=== PATIENT | male | born 1970 | race Caucasian/White ===

== ENCOUNTER 2021-06-18 16:32 | Emergency (ER) | payer MEDICARE, MEDICAID, SELFPAY ==
[2021-06-18 16:34] VITALS: BP 117/86; PULSE 59; RESP 20; TEMP 36.6; O2SAT 94
--- NOTE | 2021-06-18 17:02 | ED.GENADULT ---
HPI - General Adult General Chief complaint: Unspecified Stated complaint: rt leg pain Time Seen by Provider: 06/18/21 16:59 Source: patient Mode of arrival: ambulatory Limitations: no limitations History of Present Illness HPI narrative: Patient is a 50-year-old male brought in due to bizarre behavior and confusion. Patient was found laying on someone's driveway. Patient states that he has chronic pain everywhere. Review of Systems Review of Systems: ROS unobtainable: Yes unobtainable due to mental status PMFSH Comments Past medical history: Unknown Family history: Unknown Social history: Unknown Exam Const: General: cooperative, well developed, alert, awake, Physically active and poor hygiene Nutritional Appearance: average body habitus Orientation/consciousness: oriented to person, oriented to place, oriented to time and patient oriented x3 Limitations: other limitations HENMT: Head: normal to inspection, normocephalic and atraumatic Ears: hearing grossly normal bilaterally, TM normal on the right and TM normal on the left General nose exam: Normal external nose present, Normal nares present and No nasal discharge present Face and sinus: normal facial exam Mouth: Yes Normal oral and palatal mucosa present, Yes lip normal, Yes tongue normal and Yes oropharynx normal Throat: posterior oropharynx normal, tonsils normal and uvula midline Eyes: General: appearance normal, both eyes and all related structures Pupils: Equal, round and reactive pupils present EOM: EOMs intact bilaterally Neck: Neck: normal visual inspection, full ROM, no lymphadenopathy and no meningeal signs Chest: Chest palpation & inspection: normal inspection of the chest Resp: Effort & Inspection: normal respiratory effort, able to speak in complete sentences, no respiratory distress and not tachypneic Auscultation: clear to auscultation bilaterally, no crackles, no rales, no rhonchi and no wheezes Cardio: Rate: regular rate Rhythm: regular rhythm GI: Inspection: normal to inspection GI Palp: No abdominal tenderness, Yes Soft to palpation, No Tenderness to palpation present (GI), No Guarding due to palpation present (GI), No Rigid due to palpation and No Rebound tenderness present Auscultation: normal bowel sounds : General: Yes no CVA tenderness Back/Spine/Pelvis: Back: no CVA tenderness Skin: General skin exam: normal color, no rashes or lesions noted, elasticity normal and turgor normal Neuro: General: oriented to person, oriented to place, oriented to time, patient oriented x3, tone normal, moves all extremities, Normal light touch and pain sensation, no meningeal signs, no focal motor deficits, CN's II-XI intact bilaterally and No confusion Cranial nerves: Yes Equal, round and reactive pupils present Speech: No Abnormal speech present Sensory Exam: No Sensory deficit (Neuro) Extrem: General: normal to inspection, full ROM and capillary refill normal Psych: Speech and movement: Normal speech and movement present Course Vital Signs Vital signs: Vital Signs Temperature 36.6 C 06/18/21 16:34 Pulse Rate 59 L 06/18/21 16:34 Respiratory Rate 20 06/18/21 16:34 Blood Pressure 117/86 06/18/21 16:34 Pulse Oximetry 94 06/18/21 16:34 Temperature 37.1 C 06/18/21 17:24 Pulse Rate 80 06/18/21 17:24 Respiratory Rate 14 06/18/21 17:24 Blood Pressure 117/90 06/18/21 17:24 Pulse Oximetry 100 06/18/21 17:24 Medical Decision Making MDM Narrative Medical decision making narrative: Brother who is power of water supervisor's arrived and now at bedside. His brother states that this is his baseline and the reason why he is confused about being at [facility] is because his brother just moved him here. Brother states that the patient has a history of stroke and seizure in the past and that his mental health has been slowly deteriorating. Brother would like to take the patient back home and he does not want any lab work-up. Vital
--- NOTE | 2021-06-18 17:02 | PC.NURSE ---
Pt sister Wendy Moran called, she was told by Kin AGUIRRE he was brought to this facility. She will send her Ondina to sit with the patient. Wendy- [phone], Ondina [phone].
--- NOTE | 2021-06-18 17:05 | PC.NURSE ---
pt continues to get out of bed and walk down the hallway despite asking him to stay on his stretcher. sitter placed with pt for safety purposes until family member can get here.
[2021-06-18 17:24] VITALS: BP 117/90; PULSE 80; RESP 14; TEMP 37.1; O2SAT 100
[2021-06-18 18:10] VITALS: BP 121/64; PULSE 62; RESP 14; O2SAT 100
== END 2021-06-18 18:11 | disposition home or self-care (01) ==
PROVIDERS: Emergency Provider Emergency Medicine
DX: R41.82 Altered mental status, unspecified (principal); F91.9 Conduct disorder, unspecified; Z86.73 Personal history of transient ischemic attack (TIA), and cerebral infarction without residual deficits
CPT/HCPCS: 99281

== ENCOUNTER 2022-04-19 17:16 | Emergency (ER) | payer OTHER, SELFPAY ==
--- NOTE | ~2022-04-19 | XR_ITS ---
EXAMINATION: XR foot RT min 3V DATE: 04/19/2022 17:59 INDICATION: Lateral right foot pain post fall. TECHNIQUE: Dorsoplantar, two oblique and lateral views of the right foot were obtained. COMPARISON: None. FINDINGS: There is plantar flexion of the foot and and ankle which is likely positional. No evident traumatic m alalignment. No fractures. Joint spaces are normal. Soft tissues are unremarkable. The right ankle jameson int effusion. IMPRESSION: 1. Likely positional plantar flexion of the foot and ankle. No other osseous abnormality. Reviewed, dictated and finalized at location A. IMPRESSION: 1. Likely positional plantar flexion of the foot and ankle. No other osseous ab normality.
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
[2022-04-19 17:15] VITALS: BP 142/86; PULSE 94; RESP 18; TEMP 36.6; O2SAT 96
--- NOTE | 2022-04-19 17:40 | ECG_ITS ---
Measurements Intervals [place] Rate: 80 P: 53 [place]: 148 QRS: 64 QRSD: 79 T: 50 QT: 367 QTc: 423 Interpretive Statements SINUS RHYTHM POSSIBLE LEFT ATRIAL ENLARGEMENT [-0.1mV P WAVE IN V1/V2] BORDERLINE ECG NO PREVIOUS ECG AVAILABLE FOR COMPARISON Electronically Signed On 04-20-2022 12:42:03 CDT by Edilberto Hough M.D.
--- NOTE | 2022-04-19 17:47 | ED.LOWEXIN ---
HPI - Extremity Injury (Lower) General Chief Complaint: Extremity Injury, Lower <PATTI Puente Last Filed: 04/19/22 20:37> Stated Complaint: right foot pain <PATTI Puente Last Filed: 04/19/22 20:37> Source: patient and EMS <PATTI Puente Last Filed: 04/19/22 20:37> Mode of arrival: EMS <PATTI Puente Last Filed: 04/19/22 20:37> Limitations: clinical condition <PATTI Puente Last Filed: 04/19/22 20:37> History of Present Illness HPI Narrative: Patient is a 51-year-old male who presents the ED via EMS with report of right foot pain. Per EMS report, patient tripped and fell and was found on the sidewalk. Complaining of right foot pain. Patient has history of recent CVA with right-sided deficits and residual dysarthria. He wears a splint on his right foot and right hand is contractured. Patient reports he was slight dizzy prior to the fall occurring. Denies any dizziness currently. He does complain of right foot pain right now. He does not think he hit his head or lost consciousness. <PATTI Puente Last Filed: 04/19/22 20:37> Related Data Allergies/Adverse Reactions: Allergies Allergy/AdvReac Type Severity Reaction Status Date / Time No Known Allergies Allergy Verified 04/19/22 17:22 <PATTI Puente Last Filed: 04/19/22 20:37> Review of Systems Review of Systems: CONSTITUTIONAL: Denies fever. MUSCULOSKELETAL: Reports right foot pain. NEUROLOGIC: Reports dizziness, possible head injury/LOC. Reports chronic weakness of right upper extremity, right lower extremity. Denies headache, numbness. <PATTI Puente Last Filed: 04/19/22 20:37> ROS unobtainable: Yes unobtainable due to medical condition <PATTI Puente Last Filed: 04/19/22 20:37> PMFSH Past Medical History Medical History: Medical History (Updated 04/19/22 @ 20:31 by Kindra Boyer PA-C) History of CVA (cerebrovascular accident) <Kindra Boyer PA-C - Last Filed: 04/19/22 20:37> Surgical History Surgical History: Surgical History (Updated 04/19/22 @ 18:24 by Kindra Boyer PA-C) History of craniotomy <Kindra Boyer PA-C - Last Filed: 04/19/22 20:37> Social History Social History: Social History (Updated 04/19/22 @ 18:24 by Kindra Boyer PA-C) Smoking status: Current every day smoker <Kindra Boyer PA-C - Last Filed: 04/19/22 20:37> Exam Narrative: GENERAL: Mildly disheveled appearing, thin, non-toxic, in no acute distress. HEAD: Normocephalic, atraumatic. EYES: PERRL/EOMI, conjunctivae clear bilaterally. NECK: Supple. No adenopathy, no masses. No tenderness. Full ROM. RESPIRATORY: Airway patent, respirations nonlabored. Clear to auscultation bilaterally, no rales, rhonchi, wheezing. CARDIOVASCULAR: Regular rate and rhythm without murmurs, rubs, or gallops. Peripheral pulses 2+ and equal bilaterally. MUSCULOSKELETAL: Limited ROM, decreased strength of RUE/RLE, consistent with previous CVA. Contracture of R hand, contracture/foot drop/exaggerated plantar flexion of R foot, also consistent with previous CVA. Diffuse TTP of R foot. SKIN: Warm, dry, normal color. No rashes. NEURO: A&O X3. Occasional dysarthria/trouble finding words. Cranial nerves II-XII grossly intact. No ataxic movements. PSYCHIATRIC: Appropriate mood and affect. Normal interaction. <Kindra Boyer PA-C - Last Filed: 04/19/22 20:37> Course BEE FARMER/PA Physician Supervision For this patient encounter, I reviewed the BEE FARMER or PA documentation, treatment plan, and medical decision making <Arnaldo Pina MD - Last Filed: 04/19/22 21:21> Vital Signs Vital signs: Vital Signs Temperature 97.8 F 04/19/22 17:15 Pulse Rate 94 04/19/22 17:15 Respiratory Rate 18 04/19/22 17:15 Blood Pressure 142/86 H 04/19/22 17:15 Pulse Oximetry 9
[2022-04-19 18:27] LABS: Basophils Absolute Auto 0.1 K/mm3 (0.0-0.1); Basophils Percent Auto 0.6 % (0.2-1.2); Eosinophils Absolute Auto 0.2 K/mm3 (0-0.3); Hematocrit 44.2 % (42.0-52.0); Hemoglobin 14.8 g/dL (14.0-18.0); Immature Granulocyte Absolute 0.03 K/mm3 (0.00-0.031); Immature Granulocyte Percent A 0.3 % (0-0.5); Lymphocytes Absolute Auto 3.28 K/mm3 (0.9-3.2); Lymphocytes Percent Auto 31.4 % (18.3-44.2); Mean Corpuscular HGB Conc 33.5 g/dl (32-36); Mean Corpuscular Hemoglobin 30.3 pg (26-34); Mean Corpuscular Volume 90.4 fl (80-100); Monocytes Absolute Auto 0.8 K/mm3 (0.1-0.6); Monocytes Percent Auto 7.3 % (2.6-8.5); Neutrophils Absolute Auto 6.1 K/mm3 (1.3-6.7); Neutrophils Percent Auto 58.4 % (45.5-73.1); Platelet Count Result 339 k/mm3 (150-375); Red Blood Count 4.89 M/mm3 (4.6-6.20); Red Cell Distribution Width 13.7 % (11.5-14.5); White Blood Count 10.4 K/mm3 (4.5-10.0)
[2022-04-19] MEDS: KETOROLAC 30 MG/ML VIAL (*BKC) IM (18:39)
--- NOTE | 2022-04-19 19:16 | PC.NURSE ---
Report received from SUNDAY Camacho. Pt needs green top redrawn per lab request. Pt up out of bed requesting something further for pain. Provider made aware.
[2022-04-19 19:45] LABS: Alanine Aminotransferase 31 U/L (6-50); Albumin Level 4.9 g/dL (3.5-5.1); Alkaline Phosphatase 121 U/L (38-126); Anion Gap 11 mmol/L (8-16); Aspartate Amino Transferase 41 U/L (17-59); Bilirubin,Total 0.9 mg/dL (0.2-1.3); Blood Urea Nitrogen 19 mg/dL (9-20); Calcium 9.6 mg/dL (8.4-10.2); Carbon Dioxide 27 mmol/L (22-30); Chloride 105 mmol/L (98-107); Estimated CRCL calculation 68 ml/min; Estimated Glomerular Filt Rate > 60; Glucose 101 mg/dL (65-110); Potassium 4.7 mmol/L (3.4-5.0); Sodium 143 mmol/L (137-145)
--- NOTE | 2022-04-19 20:43 | PC.NURSE ---
Ondina contacted [phone] per pt request for ride home. States will be here miladis.
== END 2022-04-19 20:50 | disposition home or self-care (01) ==
PROVIDERS: Physician Assistant; Emergency Provider Emergency Medicine
DX: S99.921A Unspecified injury of right foot, initial encounter (principal); I69.922 Dysarthria following unspecified cerebrovascular disease; F17.200 Nicotine dependence, unspecified, uncomplicated; R94.31 Abnormal electrocardiogram [ECG] [EKG]; W01.0XXA Fall on same level from slipping, tripping and stumbling without subsequent striking against object, initial encounter
CPT/HCPCS: 36415; 70450; 73630; 80053; 85025; 93005; 96372; 99284; J1885

== ENCOUNTER 2022-07-04 15:08 | Emergency (ER) | payer OTHER, SELFPAY ==
--- NOTE | ~2022-07-04 | XR_ITS ---
EXAMINATION: XR chest 1V portable INDICATION: Confusion, altered mental status TECHNIQUE: Portable AP chest at 1634 hours COMPARISON: None available FINDINGS: The lungs are free of acute opacities. No pleural effusion or pneumothorax. The heart size is normal. Calcified left hilar lymph nodes are consistent with old granulomatous disease. Surgical c hanges are noted in the left upper quadrant. IMPRESSION: 1. No acute cardiopulmonary abnormality. Reviewed, dictated and finalized at location B. [employer]
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
--- NOTE | 2022-07-04 15:22 | ECG_ITS ---
Measurements Intervals [place] Rate: 58 P: 63 [place]: 149 QRS: 70 QRSD: 85 T: 60 QT: 374 QTc: 368 Interpretive Statements SINUS BRADYCARDIA RSR' IN V1 OR V2, PROBABLY NORMAL VARIANT BORDERLINE ECG COMPARED TO ECG 04/19/2022 18:26:30 SINUS BRADYCARDIA NOW PRESENT Electronically Signed On 07-04-2022 20:05:47 [facility] by Yovanny Mcpherson D.O.
[2022-07-04 15:54] VITALS: BP 136/75; PULSE 67; RESP 14; TEMP 36.7; O2SAT 100
[2022-07-04 16:06] LABS: Basophils Absolute Auto 0.1 K/mm3 (0.0-0.1); Basophils Percent Auto 0.8 % (0.2-1.2); Eosinophils Absolute Auto 0.2 K/mm3 (0-0.3); Eosinophils Percent Auto 2.4 % (0-4.4); Hematocrit 44.2 % (42.0-52.0); Hemoglobin 14.6 g/dL (14.0-18.0); Immature Granulocyte Absolute 0.03 K/mm3 (0.00-0.031); Immature Granulocyte Percent A 0.4 % (0-0.5); Lymphocytes Absolute Auto 2.11 K/mm3 (0.9-3.2); Lymphocytes Percent Auto 28.2 % (18.3-44.2); Mean Corpuscular Hemoglobin 30.6 pg (26-34); Mean Corpuscular Volume 92.7 fl (80-100); Mean Platelet Volume 10.1 fl (7.4-10.4); Monocytes Absolute Auto 0.5 K/mm3 (0.1-0.6); Monocytes Percent Auto 6.3 % (2.6-8.5); Neutrophils Absolute Auto 4.6 K/mm3 (1.3-6.7); Neutrophils Percent Auto 61.9 % (45.5-73.1); Platelet Count Result 308 k/mm3 (150-375); Red Blood Count 4.77 M/mm3 (4.6-6.20); Red Cell Distribution Width 13.4 % (11.5-14.5); White Blood Count 7.5 K/mm3 (4.5-10.0)
[2022-07-04 16:08] VITALS: BP 98/71; PULSE 67; RESP 12; O2SAT 100
[2022-07-04 16:19] LABS: Alanine Aminotransferase 26 U/L (6-50); Albumin Level 4.3 g/dL (3.5-5.1); Alkaline Phosphatase 89 U/L (38-126); Anion Gap 13 mmol/L (8-16); Aspartate Amino Transferase 30 U/L (17-59); Bilirubin,Total 0.5 mg/dL (0.2-1.3); Blood Urea Nitrogen 22 mg/dL (9-20); Calcium 9.1 mg/dL (8.4-10.2); Carbon Dioxide 30 mmol/L (22-30); Chloride 104 mmol/L (98-107); Estimated CRCL calculation 81 ml/min; Estimated Glomerular Filt Rate > 60; Glucose 102 mg/dL (65-110); Potassium 3.9 mmol/L (3.4-5.0); Sodium 147 mmol/L (137-145)
[2022-07-04 16:59] LABS: Ethanol < 10 mg/dL (<10)
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
[2022-07-04 18:16] LABS: Appearance Urine Slightly Cloudy (Clear); Bilirubin Urine Negative (Negative); Blood Urine Negative (Negative); Color Urine Yellow (Yellow); Glucose Urine UA Negative (Negative); Ketones Urine Negative (Negative); Leukocyte Esterase Ur Negative LEU/UL (Negative); Nitrate Urine Negative (Negative); Protein Urine Negative (Negative); Urobilinogen Urine 0.2 mg/dL (<2.0)
[2022-07-04 18:19] LABS: Bacteria Urine Trace /hpf; Mucus Urine Rare /lpf; RBC Urine 0-2 /hpf (0-2); WBC Urine 0-3 /hpf
[2022-07-04 18:20] LABS: Add Urine Microscopic? YES
[2022-07-04 19:27] LABS: Barbiturate Screen Urine Negative (Negative); Benzodiazepines Screen Urine Negative (Negative)
[2022-07-04 19:28] LABS: Amphetamine Screen Urine Negative (Negative); Cannabinoid Screen Urine Positive (Negative); Cocaine Screen Urine Negative (Negative); Methadone Screen Urine Negative (Negative); Opiate Screen Urine Negative (Negative); Phencyclidine Screen Urine Negative (Negative)
== END 2022-07-04 19:08 | disposition home or self-care (01) ==
PROVIDERS: Emergency Medicine; Physician Assistant; Emergency Provider Emergency Medicine
DX: R41.82 Altered mental status, unspecified (principal); I69.951 Hemiplegia and hemiparesis following unspecified cerebrovascular disease affecting right dominant side; S09.90XS Unspecified injury of head, sequela; F17.200 Nicotine dependence, unspecified, uncomplicated; R00.1 Bradycardia, unspecified; R94.31 Abnormal electrocardiogram [ECG] [EKG]; W34.00XS Accidental discharge from unspecified firearms or gun, sequela
CPT/HCPCS: 36415; 70450; 71045; 80053; 80307; 81001; 85025; 85610; 85730; 93005; 99284

== ENCOUNTER 2023-11-07 19:07 | Emergency (ER) | payer MEDICARE, MEDICAID, SELFPAY ==
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
[2023-11-07 19:06] VITALS: PULSE 108; RESP 16; TEMP 36.6; O2SAT 100
[2023-11-07] MEDS: MIDAZOLAM HCL (*CRX) 2 MG/2 ML VIAL 10 MG IM (19:42)
[2023-11-07] MEDS: HALOPERIDOL LACTATE 5 MG/ML VIAL IM (19:42)
[2023-11-07] MEDS: diphenhydrAMINE HCl INJ 50 MG/ML VIAL 25 MG IM (19:42)
--- NOTE | 2023-11-07 19:43 | PC.NURSE ---
Consulted EDP about dosage for Versed; VORB for 4 mg Versed IM, 25 mg of Benadryl IM, and 5 mg of Haldol IM. Patient is yelling and uncooperative with staff upon arrival. Medications adminsitered in left gluteal and left thigh. Brother at bedside.
[2023-11-07 19:50] VITALS: O2SAT 100
[2023-11-07 20:22] VITALS: BP 110/78; PULSE 92; RESP 15; O2SAT 95
[2023-11-07 20:27] LABS: Basophils Absolute Auto 0.1 K/mm3 (0.0-0.1); Basophils Percent Auto 0.7 % (0.2-1.2); Eosinophils Absolute Auto 0.2 K/mm3 (0-0.3); Eosinophils Percent Auto 2.5 % (0-4.4); Hematocrit 40.7 % (42.0-52.0); Hemoglobin 14.3 g/dL (14.0-18.0); Immature Granulocyte Absolute 0.02 K/mm3 (0.00-0.031); Immature Granulocyte Percent A 0.2 % (0-0.5); Lymphocytes Absolute Auto 2.99 K/mm3 (0.9-3.2); Lymphocytes Percent Auto 36.8 % (18.3-44.2); Mean Corpuscular HGB Conc 35.1 g/dl (32-36); Mean Corpuscular Volume 88.3 fl (80-100); Mean Platelet Volume 10.5 fl (7.4-10.4); Monocytes Absolute Auto 0.6 K/mm3 (0.1-0.6); Monocytes Percent Auto 7.8 % (2.6-8.5); Neutrophils Absolute Auto 4.2 K/mm3 (1.3-6.7); Platelet Count Result 279 k/mm3 (150-375); Red Blood Count 4.61 M/mm3 (4.6-6.20); Red Cell Distribution Width 12.8 % (11.5-14.5); White Blood Count 8.1 K/mm3 (4.5-10.0)
[2023-11-07 20:38] LABS: Ethanol < 10 mg/dL (<10); INR 1.1; Partial Thromboplastin Time 26.4 Seconds (22.3-36.8); Prothrombin Time 14.6 Seconds (11.1-14.7)
[2023-11-07 20:41] LABS: Alanine Aminotransferase 35 U/L (6-50); Albumin Level 4.1 g/dL (3.5-5.1); Alkaline Phosphatase 81 U/L (38-126); Anion Gap 7 mmol/L (8-16); Aspartate Amino Transferase 43 U/L (17-59); Bilirubin,Total 1.4 mg/dL (0.2-1.3); Blood Urea Nitrogen 15 mg/dL (9-20); Calcium 9.2 mg/dL (8.4-10.2); Carbon Dioxide 25 mmol/L (22-30); Chloride 107 mmol/L (98-107); Creatine Kinase 287 U/L (55-170); Estimated CRCL calculation 91 ml/min; Estimated Glomerular Filt Rate > 60; Glucose 100 mg/dL (65-110); Sodium 139 mmol/L (137-145)
[2023-11-07 21:29] LABS: Appearance Urine Clear (Clear); Bacteria Urine None Seen /hpf; Bilirubin Urine Negative (Negative); Blood Urine Negative (Negative); Color Urine Yellow (Yellow); Glucose Urine UA Negative (Negative); Ketones Urine Trace mg/dL (Negative); Leukocyte Esterase Ur Negative LEU/UL (Negative); Need Manual Microscopic Reviewed; Nitrate Urine Negative (Negative); Non Pathogenic Casts 0-2; Protein Urine 1+ mg/dL (Negative); RBC Urine 0-2 /hpf (0-2); Specific Grav Ur 1.026 (1.001-1.035); Squamous Epithelial Cell Urine None Seen /hpf (Few); WBC Urine 0-5 /hpf (0-3)
[2023-11-07 21:30] LABS: Add Urine Microscopic? YES; Spermatozoa Urine PRESENT
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
[2023-11-07 22:36] VITALS: BP 106/76; PULSE 68; RESP 15; O2SAT 100
[2023-11-07 23:37] VITALS: BP 102/64; PULSE 69; RESP 15; O2SAT 99
== END 2023-11-07 23:38 | disposition home or self-care (01) ==
PROVIDERS: Emergency Provider Student in an Organized Health Care Education/Training Program
DX: G40.909 Epilepsy, unspecified, not intractable, without status epilepticus (principal); F17.200 Nicotine dependence, unspecified, uncomplicated; Z86.73 Personal history of transient ischemic attack (TIA), and cerebral infarction without residual deficits; Z98.890 Other specified postprocedural states; Z87.820 Personal history of traumatic brain injury; Z91.148 Patient's other noncompliance with medication regimen for other reason
CPT/HCPCS: 36415; 70450; 80053; 80307; 82550; 85025; 85610; 85730; 96372; 99284; J1200; J1630; J2250

== ENCOUNTER 2023-11-11 14:02 | Emergency (ER) | payer MEDICARE, MEDICAID, SELFPAY ==
--- NOTE | ~2023-11-11 | XR_ITS ---
XR chest 1V portable DATE: 11/11/2023 16:08 INDICATION: Agitation TECHNIQUE: Portable AP chest on 11/11/2023 at 1604 hours COMPARISON: 07/14/2022 portable AP chest FINDINGS: Normal heart size. Calcified left hilar nodes consistent with old pulmonary granulomatous d isease. No pulmonary infiltrate or consolidation, pleural effusion or pulmonary vascular congestion or pneumo thorax is evident. Surgical clips overlie the left upper quadrant with suggestion of splenectomy. IMPRESSION: No active cardiopulmonary disease Postoperative change of left upper quadrant, also present on 07/14/2022 Reviewed, dictated and finalized at location B.
[2023-11-11 14:22] VITALS: BP 138/80; PULSE 77; RESP 20; TEMP 36.3; O2SAT 100; O2SAT 97
[2023-11-11] MEDS: LORazepam (*CRX) 1 MG TABLET PO (14:39)
[2023-11-11] MEDS: diphenhydrAMINE HCl INJ 50 MG/ML VIAL (15:11)
[2023-11-11] MEDS: HALOPERIDOL LACTATE 5 MG/ML VIAL (15:11)
--- NOTE | 2023-11-11 15:13 | PC.NURSE ---
Pt screaming in room, cursing at staff, attempting to get out of bed. Another RN and MD in room to medication patient safely. Bed low, rails up, bed alarm under patient.
--- NOTE | 2023-11-11 17:25 | PC.NURSE ---
x2 attempt at drawing blood from patient and he stated it was ok for tech to draw. pt began screaming and cursing staff stating i dont fuing care . Tech left room for safety. made aware.
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
--- NOTE | 2023-11-11 19:16 | PC.NURSE ---
Attempted to call brother to pick out hand and no answer.
[2023-11-11 20:00] VITALS: BP 132/78; PULSE 74; RESP 18; TEMP 36.6; O2SAT 98
== END 2023-11-11 20:00 | disposition home or self-care (01) ==
PROVIDERS: Emergency Provider Emergency Medicine
DX: R45.1 Restlessness and agitation (principal); F17.200 Nicotine dependence, unspecified, uncomplicated; Z86.73 Personal history of transient ischemic attack (TIA), and cerebral infarction without residual deficits
CPT/HCPCS: 71045; 96372; 99283; A9270; J1200; J1630; J2060

== ENCOUNTER 2024-01-02 12:37 | Emergency (ER) | payer MEDICARE, MEDICAID, SELFPAY ==
[2024-01-02 12:57] VITALS: BP 123/78; PULSE 97; RESP 15; TEMP 36.5; O2SAT 99
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
--- NOTE | 2024-01-02 16:43 | PC.NURSE ---
called pts brother for a ride home. pts brother states the pts father will be here in 10-15 mins to pick pt up.
== END 2024-01-02 17:05 | disposition home or self-care (01) ==
PROVIDERS: Emergency Provider Emergency Medicine
DX: Z00.8 Encounter for other general examination (principal); F17.200 Nicotine dependence, unspecified, uncomplicated; Z86.73 Personal history of transient ischemic attack (TIA), and cerebral infarction without residual deficits; Z87.820 Personal history of traumatic brain injury
CPT/HCPCS: 99281

== ENCOUNTER 2024-07-08 10:49 | Inpatient (IN) | payer MEDICARE, MEDICAID, SELFPAY ==
--- NOTE | ~2024-07-08 | CT_ITS ---
EXAMINATION: CT brain wo con DATE: 07/10/2024 11:12 INDICATION: Expressive aphasia. TECHNIQUE: Computed tomography (CT) of the head was performed without intravenous contrast. The mA wa s adjusted according to patient size. Iterative reconstruction technique was employed. The dose-lengt h product was 1359.51 mGy-cm. COMPARISON: Head CT 11/07/2023 FINDINGS: Motion artifact is noted. There is chronic encephalomalacia in the right parietal occipital region. There is extensive chronic encephalomalacia involving left cerebral hemisphere in the expect ed distribution of the internal carotid artery. There is no intracranial hemorrhage, acute infarction , or abnormal intracranial mass lesion. There is ex vacuo dilatation of the lateral ventricles. There are changes of left-sided craniotomy. There is mucosal thickening in the paranasal sinuses. The mast oid air cells are normal. There is cerumen in left external auditory canal. Intracranial shrapnel is noted. IMPRESSION: 1. Chronic extensive encephalomalacia in the brain, left worse than right. Reviewed, dictated and finalized at location A. UTER SYSTEMS INTEGRATOR
--- NOTE | ~2024-07-08 | XR_ITS ---
EXAMINATION: XR chest 1V portable DATE: 07/11/2024 10:09 INDICATION: Hypotension. TECHNIQUE: A single frontal view of the chest was obtained. COMPARISON: Chest single view 11/11/2023 FINDINGS: There is no pneumonia, pleural effusion, or pneumothorax. The heart size is normal. Calcifi ed left hilar lymph nodes are consistent with old granulomatous disease. There are surgical clips in left abdomen. IMPRESSION: 1. No acute cardiopulmonary disease. Reviewed, dictated and finalized at location A. OR REPRESENTATIVES
[2024-07-08 10:44] VITALS: BP 111/81; PULSE 60; RESP 20; TEMP 36.4; O2SAT 99
--- NOTE | 2024-07-08 11:04 | PC.NURSE ---
Attempted to contact pt's brother
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
[2024-07-08 17:27] VITALS: BP 112/73; PULSE 72; RESP 20; O2SAT 100
--- NOTE | 2024-07-08 17:59 | PCCCNOTE ---
1200-called to the ED for possible placement of pt. Pt lives alone at his residence at this time, but is becoming more confused and unable to care for himself. He has a history of a TBI and CVA. Pts brother is Ondina Moran, , he is the pts POA. Pt is A&O times one, he also has a difficult time with walking due to his right foot is contracted. I faxed a referral to [facility], [facility], and [facility]. Mai from [facility] and Zahira from [facility] came to evaluate pt. Both declined to take pt due to pt agitation and screaming profanities. I left a message with Zahira with [facility] to inquire about placement in the [place] facility, if they have an ADAPT program. Mai from [facility] was looking into their [facility] facility. Pt brother would prefer him to be closer to the [place] area, but if he has to go farther away to receive the ADAPT facilities, he is open to that as well.
[2024-07-08 18:40] LABS: Alanine Aminotransferase 33 U/L (6-50); Albumin Level 4.3 g/dL (3.5-5.1); Alkaline Phosphatase 90 U/L (38-126); Anion Gap 9 mmol/L (4-12); Aspartate Amino Transferase 57 U/L (17-59); Blood Urea Nitrogen 14 mg/dL (9-20); Calcium 9.2 mg/dL (8.4-10.2); Carbon Dioxide 27 mmol/L (22-30); Chloride 102 mmol/L (98-107); Estimated CRCL calculation 89 ml/min; Estimated Glomerular Filt Rate > 60; Glucose 115 mg/dL (65-110); Potassium 3.6 mmol/L (3.4-5.0); Sodium 138 mmol/L (137-145)
[2024-07-08 19:10] LABS: Basophils Absolute Auto 0.1 K/mm3 (0.0-0.1); Basophils Percent Auto 0.6 % (0.2-1.2); Eosinophils Absolute Auto 0.4 K/mm3 (0-0.3); Eosinophils Percent Auto 4.5 % (0-4.4); Hematocrit 41.6 % (42.0-52.0); Hemoglobin 14.7 g/dL (14.0-18.0); Immature Granulocyte Absolute 0.03 K/mm3 (0.00-0.031); Immature Granulocyte Percent A 0.3 % (0-0.5); Lymphocytes Absolute Auto 3.01 K/mm3 (0.9-3.2); Lymphocytes Percent Auto 33.6 % (18.3-44.2); Mean Corpuscular HGB Conc 35.3 g/dl (32-36); Mean Corpuscular Hemoglobin 31.5 pg (26-34); Mean Corpuscular Volume 89.3 fl (80-100); Mean Platelet Volume 10.2 fl (7.4-10.4); Monocytes Absolute Auto 0.9 K/mm3 (0.1-0.6); Monocytes Percent Auto 9.5 % (2.6-8.5); Neutrophils Absolute Auto 4.6 K/mm3 (1.3-6.7); Neutrophils Percent Auto 51.5 % (45.5-73.1); Platelet Count Result 294 k/mm3 (150-375); Red Blood Count 4.66 M/mm3 (4.6-6.20); Red Cell Distribution Width 12.7 % (11.5-14.5)
--- NOTE | 2024-07-08 19:11 | PC.NURSE ---
EDP Dr. Yovani hu with patient not having an IV with admission.
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
[2024-07-08 19:50] VITALS: BMI 21.2
[2024-07-08 20:07] VITALS: BP 110/85; PULSE 75; RESP 18; TEMP 36.3; O2SAT 100
[2024-07-08] MEDS: OLANZapine 5 MG TABLET PO (23:18)
[2024-07-09 04:09] VITALS: BP 99/58; PULSE 133; RESP 24
[2024-07-09] MEDS: LIDOCAINE HCL 2% GEL UROJET 10 ML PKG MUCOUS MEM (04:20)
--- NOTE | 2024-07-09 04:23 | ECG_ITS ---
Test Date: 2024-07-09 04:49:43 Measurements Intervals [place] Rate: 60 P: 49 OR: 161 QRS: 45 QRSD: 78 T: 57 QT: 391 QTc: 391 Interpretive Statements SINUS RHYTHM LOW QRS VOLTAGE IN PRECORDIAL LEADS POSSIBLE RIGHT VENTRICULAR CONDUCTION DELAY BASELINE ARTIFACT- I, II, III, AVR, AVL, AVF, V1-V6 BORDERLINE ECG No previous ECG available for comparison Electronically Signed On 07-09-2024 05:37:33 CONTRACT CLERK by Yovanny Mcpherson D.O.
[2024-07-09 04:24] LABS: Glucose Point of Care 98 mg/dl (65-105)
--- NOTE | 2024-07-09 04:32 | PM.CCN ---
Critical Care Event Note Summary Code activated: No Narrative: 07/09/2024 approximately 04:00 Patient was restless and impulsive. He cap calling out in yelling. Earlier in the evening he had received a dose of Zyprexa with relatively good results in seemed to be resting. The patient did become intermittently restless and would be impulsive and was occasionally still yelling out so in order was given for Seroquel nightly to see if this would not help with some of the patient's symptoms. Patient is reportedly not on antipsychotics at home. We do not have [place] records from the [place]. Then approximately IV a.m. patient suddenly sat up in bed and when her patient childcare worker came to the patient's bedside the patient slumped to the side with his head at the foot of the bed but was able to flop himself to the other side of the bed. When they tried to repositioning him in set him up the patient seemed to go limp and fall backwards. I was nearby and went to evaluate the patient patient's blood pressures were borderline low 95/61. Patient was not tachycardic or tachypneic. He seemed less responsive for about a minute. But on questioning patient could tell me his name and was able to independently localized my hand and a voice displeasure with staff touching him. At the time of my evaluation the patient seems significantly uncomfortable with palpation of his abdomen and I suspected a distended bladder. Bladder scan was performed which demonstrated greater than 750 mL of urine. A straight catheterization was performed and patient had greater than 1 L of urine output. Unfortunately I was not aware that the patient had not had a UA obtained in the ER and the urine specimen was discarded. Patient's urine was clear but quite dark. After catheterization the patient seemed much more comfortable and was able to tell nursing staff that he was cold and seemed back to prior baseline if not slightly improved. I am suspicious that some of the patient's recent behavior changes may been due urinary retention. Patient may have some component of BPH. Will start the patient on Flomax and will bladder scan the patient and perform intermittent catheterization. Patient will not tolerate presence of a Multani catheter and was already trying to pull at the straight catheterization well nursing was performing the procedure. I have provided order for UA with the patient's next void. Patient does have some dry mucous membranes and has had a few drinks of water but is not actively seeking oral intake. Patient will likely need assistance and encouragement to continue with oral intake. It may be beneficial to see if the [facility] If he is he may benefit from transfer to a [place] prison facility given the complexity of his history of behavior issues with traumatic brain injury and PTSD. I requested nursing to obtain records records from [facility]. 35 minute spent in critical care activities This case had a high probability of a clinically significant, sudden, or life threatening deterioration of this patient's condition which required my full and direct attention, intervention and personal management. Critical care time: 30 - 74 mins
[2024-07-09 06:00] VITALS: BP 95/61; PULSE 75; RESP 18; TEMP 36.3; O2SAT 100
[2024-07-09] MEDS: TAMSULOSIN HCL 0.4 MG CAPSULE PO (10:09)
[2024-07-09 14:00] VITALS: BP 134/83; PULSE 96; RESP 20; TEMP 35.8; O2SAT 98
[2024-07-09] MEDS: QUEtiapine FUMARATE 25 MG TABLET PO (20:25)
[2024-07-09 20:39] LABS: Add Urine Microscopic? YES; Appearance Urine Cloudy (Clear); Bacteria Urine None Seen /hpf; Bilirubin Urine Negative (Negative); Blood Urine Negative (Negative); Color Urine Yellow (Yellow); Glucose Urine UA Negative (Negative); Ketones Urine Negative (Negative); Leukocyte Esterase Ur Trace LEU/UL (Negative); Nitrate Urine Negative (Negative); Non Pathogenic Casts 0-2; Protein Urine Negative (Negative); RBC Urine 0-2 /hpf (0-2); Specific Grav Ur 1.016 (1.001-1.035); Squamous Epithelial Cell Urine None Seen /hpf (Few); WBC Urine 0-5 /hpf (0-3)
[2024-07-09 21:43] VITALS: BP 109/68; PULSE 94; RESP 18; TEMP 36.3; O2SAT 100
[2024-07-10] VITALS (10 sets, daily range): BP systolic 98–110; BP diastolic 58–76; PULSE 71–85; RESP 14–18; TEMP 36.4–37; O2SAT 96–100
[2024-07-10] MEDS: ACETAMINOPHEN 325 MG TABLET 650 MG PO (02:00)
[2024-07-10] MEDS: HYDROcodone/acetaminophen (*CRX) 5-325 MG TABLET 1 TAB PO ×3 (03:10→22:20)
--- NOTE | 2024-07-10 05:48 | WPDRESTRAINT ---
Restraint Face to Face Eval. Evaluation Findings Date/Time of evaluation:: 07/10/24 05:48 Pt's immediate situation:: Patient is agitated, continuously trying to get out of bed. Yelling and pushing staff. Pt's reaction to intervention:: Haldol 5 mg IM x1 due to safety concerns for both the patient and staff. The patient is much more calm after receiving the medication. Pt's med/behavioral condition:: Haldol 5 mg IM x1 due to safety concerns for both the patient and staff. Restraint or Seclusion Need Need to continue or terminate:: No indication for physical restraints.
[2024-07-10] MEDS: HALOPERIDOL LACTATE 5 MG/ML VIAL IM (05:49)
--- NOTE | 2024-07-10 06:11 | P.PNCROSS_ITS ---
Event Note Event Note Event Note: I received a call from the patient's nurse and charge nurse on the floor. He slept pretty good a majority of the night after receiving Seroquel. Once he woke however he was very agitated, getting out of bed, trying to get out into the hallway and pushing staff. He was at risk to harm himself and staff members and was given IM Haldol with improvement. I had a [id number] evaluation with the patient and he had obvious expressive aphasia and was very frustrated by that. According to the nurse he has been speaking in this manner since admission. I have not been able to get a hold of family to see if this is a new finding for the patient. Brain CT has been ordered. He continues to refuse an IV and lab work. He complains of low back pain and suprapubic pain and has been retaining urine for which he has intermittently being straight cathed. On exam he has tenderness to palpation over the lumbar paraspinous muscles. [place] has been ordered p.r.n. as well as Lidoderm patch. It would be helpful to get in touch with the patient's brother for further information.
[2024-07-10] MEDS: OLANZapine 10 MG, WATER, STERILE FOR INJECTION 2.1 ML IM (08:36)
[2024-07-10] MEDS: TAMSULOSIN HCL 0.4 MG CAPSULE PO (08:40)
--- NOTE | 2024-07-10 09:05 | PC.NURSE ---
Pt can be aggressive at times when in an anxious state. Pt can be combative, but can be redirected, but is difficult at times. Security was called to bedside. IM Zyprexa administered, pt settled and is now resting comfortably.
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
[2024-07-10] MEDS: ARIPiprazole 10 MG TABLET PO (17:24)
[2024-07-10] MEDS: QUEtiapine FUMARATE 25 MG TABLET PO (22:20)
[2024-07-11 05:48] VITALS: BP 84/60; PULSE 85; RESP 20; TEMP 36.5; O2SAT 95
[2024-07-11 06:15] LABS: Basophils Absolute Auto 0.1 K/mm3 (0.0-0.1); Basophils Percent Auto 0.8 % (0.2-1.2); Eosinophils Absolute Auto 0.3 K/mm3 (0-0.3); Eosinophils Percent Auto 3.5 % (0-4.4); Hematocrit 42.9 % (42.0-52.0); Hemoglobin 14.5 g/dL (14.0-18.0); Immature Granulocyte Absolute 0.03 K/mm3 (0.00-0.031); Immature Granulocyte Percent A 0.3 % (0-0.5); Lymphocytes Absolute Auto 3.68 K/mm3 (0.9-3.2); Lymphocytes Percent Auto 40.4 % (18.3-44.2); Mean Corpuscular HGB Conc 33.8 g/dl (32-36); Mean Corpuscular Hemoglobin 31.2 pg (26-34); Mean Corpuscular Volume 92.3 fl (80-100); Mean Platelet Volume 10.6 fl (7.4-10.4); Monocytes Absolute Auto 0.6 K/mm3 (0.1-0.6); Monocytes Percent Auto 6.5 % (2.6-8.5); Neutrophils Absolute Auto 4.4 K/mm3 (1.3-6.7); Neutrophils Percent Auto 48.5 % (45.5-73.1); Platelet Count Result 298 k/mm3 (150-375); Red Blood Count 4.65 M/mm3 (4.6-6.20); Red Cell Distribution Width 13.2 % (11.5-14.5); White Blood Count 9.1 K/mm3 (4.5-10.0)
[2024-07-11 06:23] LABS: Lactic Acid Reflex 1.2 mmol/L (0.7-2.0)
[2024-07-11] MEDS: HYDROcodone/acetaminophen (*CRX) 5-325 MG TABLET 1 TAB PO ×4 (06:29→23:34)
[2024-07-11 06:42] LABS: Alanine Aminotransferase 30 U/L (6-50); Albumin Level 3.8 g/dL (3.5-5.1); Alkaline Phosphatase 93 U/L (38-126); Anion Gap 8 mmol/L (4-12); Aspartate Amino Transferase 41 U/L (17-59); Bilirubin,Total 0.3 mg/dL (0.2-1.3); Blood Urea Nitrogen 12 mg/dL (9-20); Calcium 8.9 mg/dL (8.4-10.2); Carbon Dioxide 26 mmol/L (22-30); Chloride 107 mmol/L (98-107); Estimated CRCL calculation 85 ml/min; Estimated Glomerular Filt Rate > 60; Glucose 95 mg/dL (65-110); Magnesium 2.1 mg/dL (1.6-2.3); Sodium 141 mmol/L (137-145)
[2024-07-11] MEDS: TAMSULOSIN HCL 0.4 MG CAPSULE PO (09:27)
[2024-07-11] MEDS: ARIPiprazole 10 MG TABLET PO (09:27)
[2024-07-11 09:43] LABS: Lactic Acid Reflex 1.8 mmol/L (0.7-2.0)
[2024-07-11] MEDS: CALCIUM CARBONATE (TUMS) 500 MG (200 MG ELEMENTAL) PO (12:25)
[2024-07-11 14:00] VITALS: BP 120/77; PULSE 74; RESP 18; TEMP 36.6; O2SAT 100
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
[2024-07-11 20:34] VITALS: BP 116/85; PULSE 74; RESP 18; TEMP 36.8; O2SAT 99
[2024-07-11] MEDS: QUEtiapine FUMARATE 25 MG TABLET PO (23:34)
[2024-07-12] MEDS: HYDROcodone/acetaminophen (*CRX) 5-325 MG TABLET 1 TAB PO ×5 (04:05→22:35)
[2024-07-12 05:13] VITALS: BP 124/76; PULSE 97; RESP 16; TEMP 36.5; O2SAT 100
[2024-07-12] MEDS: TAMSULOSIN HCL 0.4 MG CAPSULE PO (08:27)
[2024-07-12] MEDS: ARIPiprazole 10 MG TABLET PO (08:41)
[2024-07-12 08:59] VITALS: BP 110/80; PULSE 84; RESP 16; TEMP 36.3; O2SAT 98
[2024-07-12] MEDS: levETIRAcetam Tablet 250 MG, levETIRAcetam Tablet 500 MG 750 MG PO ×2 (10:50→21:11)
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
[2024-07-12 14:13] VITALS: BP 125/81; PULSE 88; RESP 16; TEMP 36.6; O2SAT 100
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
[2024-07-12] MEDS: QUEtiapine FUMARATE 25 MG TABLET PO (21:11)
[2024-07-13] MEDS: BACLOFEN 5 MG TABLET PO ×2 (00:54→20:57)
[2024-07-13 01:41] VITALS: BP 120/87; PULSE 78; RESP 16; TEMP 36.1; O2SAT 100
[2024-07-13] MEDS: oxyCODONE HCL (*CRX) 2.5 MG TAB IR PO ×2 (05:55→13:57)
[2024-07-13 07:33] LABS: Basophils Absolute Auto 0.1 K/mm3 (0.0-0.1); Basophils Percent Auto 0.8 % (0.2-1.2); Eosinophils Absolute Auto 0.4 K/mm3 (0-0.3); Eosinophils Percent Auto 5.8 % (0-4.4); Hematocrit 42.6 % (42.0-52.0); Hemoglobin 14.3 g/dL (14.0-18.0); Immature Granulocyte Absolute 0.02 K/mm3 (0.00-0.031); Immature Granulocyte Percent A 0.3 % (0-0.5); Lymphocytes Percent Auto 35.7 % (18.3-44.2); Mean Corpuscular HGB Conc 33.6 g/dl (32-36); Mean Corpuscular Hemoglobin 31.2 pg (26-34); Mean Corpuscular Volume 92.8 fl (80-100); Monocytes Absolute Auto 0.6 K/mm3 (0.1-0.6); Monocytes Percent Auto 8.3 % (2.6-8.5); Neutrophils Absolute Auto 3.7 K/mm3 (1.3-6.7); Neutrophils Percent Auto 49.1 % (45.5-73.1); Platelet Count Result 271 k/mm3 (150-375); Red Blood Count 4.59 M/mm3 (4.6-6.20); Red Cell Distribution Width 13.1 % (11.5-14.5); White Blood Count 7.6 K/mm3 (4.5-10.0)
[2024-07-13 07:50] LABS: Alanine Aminotransferase 29 U/L (6-50); Albumin Level 3.7 g/dL (3.5-5.1); Alkaline Phosphatase 81 U/L (38-126); Anion Gap 8 mmol/L (4-12); Aspartate Amino Transferase 36 U/L (17-59); Bilirubin,Total 0.3 mg/dL (0.2-1.3); Blood Urea Nitrogen 19 mg/dL (9-20); Calcium 8.8 mg/dL (8.4-10.2); Carbon Dioxide 23 mmol/L (22-30); Chloride 105 mmol/L (98-107); Estimated CRCL calculation 85 ml/min; Estimated Glomerular Filt Rate > 60; Glucose 109 mg/dL (65-110); Potassium 4.2 mmol/L (3.4-5.0); Sodium 136 mmol/L (137-145)
[2024-07-13] MEDS: TAMSULOSIN HCL 0.4 MG CAPSULE PO (11:12)
[2024-07-13] MEDS: levETIRAcetam Tablet 250 MG, levETIRAcetam Tablet 500 MG 750 MG PO (11:12)
[2024-07-13] MEDS: ARIPiprazole 10 MG TABLET PO (11:13)
[2024-07-13 14:00] VITALS: BP 117/75; PULSE 90; RESP 20; TEMP 36.2; O2SAT 100
[2024-07-13] MEDS: KETOROLAC 30 MG/ML VIAL (*BKC) IM (14:53)
[2024-07-13] MEDS: oxyCODONE HCL (*CRX) 5 MG TAB IR PO (14:53)
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
[2024-07-13 20:00] VITALS: PULSE 107; RESP 18; O2SAT 98
[2024-07-13] MEDS: QUEtiapine FUMARATE 25 MG TABLET PO (20:57)
[2024-07-13] MEDS: DIVALPROEX SODIUM ER 500 MG TAB.24H 1000 MG PO (20:57)
[2024-07-13 21:12] VITALS: BP 122/74; PULSE 107; RESP 18; TEMP 36.4; O2SAT 98
[2024-07-14 05:48] VITALS: BP 111/77; PULSE 91; RESP 16; TEMP 36.3; O2SAT 100
[2024-07-14 06:47] LABS: Alanine Aminotransferase 32 U/L (6-50); Albumin Level 3.6 g/dL (3.5-5.1); Alkaline Phosphatase 114 U/L (38-126); Anion Gap 5 mmol/L (4-12); Aspartate Amino Transferase 43 U/L (17-59); Bilirubin,Total 0.4 mg/dL (0.2-1.3); Blood Urea Nitrogen 21 mg/dL (9-20); Calcium 8.7 mg/dL (8.4-10.2); Carbon Dioxide 24 mmol/L (22-30); Chloride 107 mmol/L (98-107); Estimated CRCL calculation 85 ml/min; Estimated Glomerular Filt Rate > 60; Glucose 111 mg/dL (65-110); Potassium 4.5 mmol/L (3.4-5.0); Sodium 136 mmol/L (137-145)
[2024-07-14 07:25] LABS: Basophils Absolute Auto 0.1 K/mm3 (0.0-0.1); Basophils Percent Auto 0.5 % (0.2-1.2); Eosinophils Absolute Auto 0.6 K/mm3 (0-0.3); Eosinophils Percent Auto 6.1 % (0-4.4); Hematocrit 42.4 % (42.0-52.0); Immature Granulocyte Absolute 0.03 K/mm3 (0.00-0.031); Immature Granulocyte Percent A 0.3 % (0-0.5); Lymphocytes Absolute Auto 2.03 K/mm3 (0.9-3.2); Lymphocytes Percent Auto 21.1 % (18.3-44.2); Mean Corpuscular Hemoglobin 31.2 pg (26-34); Mean Corpuscular Volume 94.4 fl (80-100); Mean Platelet Volume 10.4 fl (7.4-10.4); Monocytes Absolute Auto 0.6 K/mm3 (0.1-0.6); Monocytes Percent Auto 6.3 % (2.6-8.5); Neutrophils Absolute Auto 6.3 K/mm3 (1.3-6.7); Neutrophils Percent Auto 65.7 % (45.5-73.1); Platelet Count Result 290 k/mm3 (150-375); Red Blood Count 4.49 M/mm3 (4.6-6.20); Red Cell Distribution Width 13.1 % (11.5-14.5); White Blood Count 9.6 K/mm3 (4.5-10.0)
[2024-07-14] MEDS: TAMSULOSIN HCL 0.4 MG CAPSULE PO (08:53)
--- NOTE | 2024-07-14 11:42 | PCNEURO ---
EEG was attempted but patient is agitated and unable to cooperate for it to be done. Neurologist informed of the attempt.
--- NOTE | 2024-07-14 12:35 | P.DS_ITS ---
DS: Summary Time Spent with Patient Time attestation: Total time spent providing and/or coordinating discharge services: DS: Data Data Completed and Pending Labs on day of discharge: Labs from last 24 hours 07/14/24 06:24 WBC 9.6 RBC 4.49 L Hgb 14.0 Hct 42.4 MCV 94.4 MCH 31.2 MCHC 33.0 RDW 13.1 Plt Count 290 MPV 10.4 Immature Gran % (Auto) 0.3 Neut % (Auto) 65.7 Lymph % (Auto) 21.1 [place] % (Auto) 6.3 Eos % (Auto) 6.1 H Baso % (Auto) 0.5 Lymph # (Auto) 2.03 [place] # (Auto) 0.6 Eos # (Auto) 0.6 H Baso # (Auto) 0.1 Abs Immat Gran (auto) 0.03 Absolute Neuts (auto) 6.3 Absolute Nucleated RBC 0.000 Nucleated RBC % 0.0 Sodium 136 L Potassium 4.5 Chloride 107 Carbon Dioxide 24 Anion Gap 5 BUN 21 H Creatinine 0.80 Estim Creat Clear Calc 85 Estimated GFR > 60 Glucose 111 H Calcium 8.7 Magnesium 2.0 Total Bilirubin 0.4 AST 43 ALT 32 Alkaline Phosphatase 114 Total Protein 6.0 L Albumin 3.6 Discharge Plan Discharge Attending physician on discharge: Beto Zapata Consulting providers: Keyshawn Patel Discharging Clinician: Carla Ortega Activity: as tolerated Diet: heart healthy Discharge Instructions: patient to follow up with his neurologist and primary care provider as soon as possible. Patient Instructions: Antibiotic Form Stand Alone Forms: General Discharge Information Follow-up/Referrals: Keyshawn Patel MD [Physician] - UNKNOWN,DOCTOR [Primary Care Provider] - Discharge Medications: No Action No Home Medications Date of admission: 07/10/24 09:53 Primary Care Provider: UNKNOWN,DOCTOR Admitting Provider: Beto Zapata Attending physician on admission: Beto Zapata Condition: Stable
[2024-07-14 14:00] VITALS: BP 114/85; PULSE 103; RESP 16; TEMP 35.9; O2SAT 98
[2024-07-14] MEDS: ACETAMINOPHEN 325 MG TABLET 650 MG PO (15:21)
== END 2024-07-14 16:10 | DRG 641 ==
LOC: ANHED 11:03 → ANH3MEDSUR 18:56
PROVIDERS: Internal Medicine; Admitting Provider Hospitalist; Emergency Provider Emergency Medicine; Visit Provider Family Medicine
DX: R62.7 Adult failure to thrive (principal); R47.01 Aphasia; R45.1 Restlessness and agitation; Z87.820 Personal history of traumatic brain injury; T14.8XXS Other injury of unspecified body region, sequela; W34.00XS Accidental discharge from unspecified firearms or gun, sequela; F41.9 Anxiety disorder, unspecified; F32.A Depression, unspecified; R56.9 Unspecified convulsions; F91.9 Conduct disorder, unspecified; Z87.891 Personal history of nicotine dependence
CPT/HCPCS: 36415; 70450; 71045; 80053; 81001; 82948; 83605; 83735; 85025; 93005; 96372; 97161; 97165; 99285; A9270; G0378; J1630; J1885; J2359

== ENCOUNTER 2025-02-06 12:59 | Emergency (ER) | payer MEDICARE, MEDICAID, SELFPAY ==
--- NOTE | ~2025-02-06 | CT_ITS ---
EXAMINATION: CT brain wo con DATE: 02/06/2025 13:37 INDICATION: Seizure. TECHNIQUE: Computed tomography (CT) of the head was performed without intravenous contrast. The dose- length product was 605.33 mGy-cm. Automated exposure control and iterative reconstruction technique w ere employed. COMPARISON: CT dated 07/10/2014 FINDINGS: Chronic encephalomalacia right parietal occipital lobe. Extensive chronic encephalomalacia left cerebral hemisphere and expected distribution of the internal carotid artery. No acute hemorrhag e, infarction, mass or mass effect. There are changes of left frontal parietal craniotomy. There is e x vacuo dilation of the lateral ventricles. There is mucosal thickening of the paranasal sinuses. Mas toids are pneumatized. There is intracranial foraminal reidentified. IMPRESSION: 1. No acute intracranial abnormality. 2: Chronic extensive encephalomalacia of the brain, left greater than right. Reviewed, dictated and finalized at location B.
--- NOTE | ~2025-02-06 | XR_ITS ---
EXAMINATION: XR chest 1V portable 02/06/2025 13:28 INDICATION: Breakthrough seizure PROCEDURE: AP portable chest COMPARISON: 07/11/2024 FINDINGS: The lungs are clear. The cardiomediastinal silhouette is within normal limits. There are no pleural effusions. There is no pneumothorax suspected. IMPRESSION: 1: NO ACUTE CARDIOPULMONARY DISEASE. Reviewed, dictated and finalized at location B.
[2025-02-06 12:58] VITALS: BP 102/78; PULSE 80; RESP 16; TEMP 36.6; O2SAT 98
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
[2025-02-06 13:29] LABS: Basophils Absolute Auto 0.1 K/mm3 (0.0-0.1); Basophils Percent Auto 1.4 % (0.2-1.2); Eosinophils Absolute Auto 0.5 K/mm3 (0-0.3); Eosinophils Percent Auto 6.9 % (0-4.4); Hematocrit 45.7 % (42.0-52.0); Immature Granulocyte Absolute 0.03 K/mm3 (0.00-0.031); Immature Granulocyte Percent A 0.4 % (0-0.5); Lymphocytes Absolute Auto 2.51 K/mm3 (0.9-3.2); Lymphocytes Percent Auto 34.2 % (18.3-44.2); Mean Corpuscular HGB Conc 32.8 g/dl (32-36); Mean Corpuscular Hemoglobin 31.6 pg (26-34); Mean Corpuscular Volume 96.4 fl (80-100); Mean Platelet Volume 10.3 fl (7.4-10.4); Monocytes Absolute Auto 0.9 K/mm3 (0.1-0.6); Monocytes Percent Auto 12.7 % (2.6-8.5); Neutrophils Absolute Auto 3.3 K/mm3 (1.3-6.7); Neutrophils Percent Auto 44.4 % (45.5-73.1); Platelet Count Result 234 k/mm3 (150-375); Red Blood Count 4.74 M/mm3 (4.6-6.20); Red Cell Distribution Width 13.8 % (11.5-14.5); White Blood Count 7.3 K/mm3 (4.5-10.0)
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
[2025-02-06 13:40] LABS: Alanine Aminotransferase 99 U/L (6-50); Albumin Level 4.1 g/dL (3.5-5.1); Alkaline Phosphatase 90 U/L (38-126); Anion Gap 9 mmol/L (4-12); Aspartate Amino Transferase 97 U/L (17-59); Bilirubin,Total 0.6 mg/dL (0.2-1.3); Blood Urea Nitrogen 15 mg/dL (9-20); Calcium 9.2 mg/dL (8.4-10.2); Carbon Dioxide 26 mmol/L (22-30); Chloride 105 mmol/L (98-107); Estimated Glomerular Filt Rate > 60; Glucose 101 mg/dL (65-110); Sodium 140 mmol/L (137-145); Total Protein 7.7 g/dL (6.3-8.2)
[2025-02-06 13:44] LABS: Valproic Acid 71.1 ug/mL (50-120)
[2025-02-06] MEDS: DIVALPROEX SODIUM ER 500 MG TAB.24H PO (14:11)
[2025-02-06 14:17] VITALS: BP 114/82; PULSE 78; RESP 16; O2SAT 98
== END 2025-02-06 15:26 ==
PROVIDERS: Emergency Provider Emergency Medicine
DX: R56.9 Unspecified convulsions (principal); S06.9XAS Unspecified intracranial injury with loss of consciousness status unknown, sequela; F41.9 Anxiety disorder, unspecified; F32.A Depression, unspecified; Z86.73 Personal history of transient ischemic attack (TIA), and cerebral infarction without residual deficits; Z87.891 Personal history of nicotine dependence; W34.00XS Accidental discharge from unspecified firearms or gun, sequela; Z79.899 Other long term (current) drug therapy
CPT/HCPCS: 36415; 70450; 71045; 80053; 80164; 85025; 99284; A9270